=== PATIENT | female | born 1940 | race Asian ===

== ENCOUNTER 2021-10-31 15:30 | Emergency (ER) | payer MEDICARE ==
[2021-11-01] MEDS ORDERED: oxyCODONE /ACETAMINOPHEN 5-325MG TAB PO ONE (01:47)
[2021-11-01] MEDS ORDERED: dexAMETHasone 4 MG/ML VIAL IM ONE (01:47)
[2021-11-01] MEDS ORDERED: CYCLOBENZAPRINE 10 MG TAB PO ONE (01:48)
[2021-11-01 03:49] LABS: Bilirubin,Urine NEG (Negative); Blood,Urine MOD (Negative); Calcium Oxalate Crystals,Urine 3+; Color,Urine Yellow (Yellow); Mucus,Urine 3+ /HPF; Protein,Urine <15 mg/dL mg/dL (Negative); Urobilinogen,Urine < 2.0 mg/dL (<2.0)
[2021-11-01] MEDS ORDERED: levoFLOXacin 500 MG TAB PO ONE (04:28)
--- NOTE | 2021-11-01 04:33 | Emergency Department Report ---
ED Back Pain/Injury HPI - General Chief Complaint: Extremity Problem,Nontraumatic Stated Complaint: LT HIP PAIN Time Seen by Provider: 11/01/21 01:46 Source: patient, EMS Limitations: No Limitations - History of Present Illness Initial Comments: 81-year-old female with a past medical history of hip and back surgery 3 years ago presents to the emergency department for evaluation of worsening left hip and left lower back pain. She states that she has pain usually but over the last few days pain has been significantly worse. She states that pain radiates down her left leg and is worse with movement and palpation. She denies fever, abdominal pain, nausea, vomiting, dysuria, and vaginal discharge. She states that she has had some urinary frequency over the past week. MD Complaint: back pain -: Gradual, week(s) Similar Symptoms Previously: Yes Place: home Radiation: none Severity: severe Quality: aching Consistency: constant Worsens With: walking Associated Symptoms: difficulty walking. denies: confusion, weakness, chest pain, numbness, cough, difficulty urinating, diaphoresis, incontinence, fever/chills, constipation, headaches, abdominal pain, loss of appetite, malaise, nausea/vomiting, rash, seizure, shortness of breath, syncope Treatments Prior to Arrival: prescription analgesics - Related Data Previous Rx's Medication Instructions Recorded Last Taken Type Acetaminophen/Codeine [Tylenol 1 tab PO Q6H PRN #12 tab 11/01/21 Unknown Rx /Codeine # 3 tab] Ciprofloxacin HCl [Ciprofloxacin 250 mg PO BID 5 Days #10 tab 11/01/21 Unknown Rx TAB] Cyclobenzaprine [Flexeril] 10 mg PO TID PRN #30 tab 11/01/21 Unknown Rx methylPREDNISolone [Medrol 4MG 4 mg PO DAILY #1 pack 11/01/21 Unknown Rx DOSEPAK (21 tabs)] Allergies Allergy/AdvReac Type Severity Reaction Status Date / Time Penicillins AdvReac Unknown Verified 10/31/21 15:37 ED Review of Systems ROS: Stated complaint: LT HIP PAIN Other details as noted in HPI Comment: All other systems reviewed and negative Constitutional: denies: chills, malaise, weakness ENT: denies: congestion Respiratory: denies: shortness of breath, SOB with exertion, SOB at rest, stridor, wheezing Cardiovascular: denies: chest pain, palpitations, dyspnea on exertion, orthopnea, edema, syncope, paroxysmal nocturnal dyspnea Gastrointestinal: denies: abdominal pain, nausea, vomiting, diarrhea, hematemesis, melena, hematochezia Genitourinary: frequency. denies: urgency, dysuria, hematuria, discharge Musculoskeletal: back pain Skin: denies: rash, lesions Neurological: denies: headache, weakness ED Past Medical Hx - Medications Home Medications: Home Medications Medication Instructions Recorded Confirmed Last Taken Type Acetaminophen/Codeine [Tylenol 1 tab PO Q6H PRN #12 tab 11/01/21 Unknown Rx /Codeine # 3 tab] Ciprofloxacin HCl [Ciprofloxacin 250 mg PO BID 5 Days #10 tab 11/01/21 Unknown Rx TAB] Cyclobenzaprine [Flexeril] 10 mg PO TID PRN #30 tab 11/01/21 Unknown Rx methylPREDNISolone [Medrol 4MG 4 mg PO DAILY #1 pack 11/01/21 Unknown Rx DOSEPAK (21 tabs)] ED Physical Exam - General Limitations: No Limitations General appearance: alert, in no apparent distress - Head Head exam: Present: atraumatic, normocephalic - Eye Eye exam: Present: normal appearance. Absent: conjunctival injection - Neck Neck exam: Present: normal inspection, full ROM. Absent: tenderness, lymphadenopathy - Respiratory Respiratory exam: Present: normal lung sounds bilaterally. Absent: respiratory distress, wheezes, rales, rhonchi, stridor, chest wall tenderness - Cardiovascular Cardiovascular Exam: Present: regular rate, normal heart sounds - GI/Abdominal GI/Abdominal exam: Present: soft, normal bowel sounds. Absent: distended, tenderness, guarding, rebound, rigid - Extremities Exam Extremities exam: Present: normal inspection, normal capillary refill. Absent: pedal edema, joint swelling - Expanded Lower Extremity Exam Left Hip exam: Present: normal inspection, tenderness. Absent: full ROM, swelling, abrasion, ecchymosis, deformity, erythema Neuro vascular tendon exam: Present: no vascular compromise, motor deficit, sensory deficit. Absent: pulse deficit, abnormal cap refill, extremity cold to touch, pallor Gait: Positive: observed and limited by pain - Back Exam Back exam: Present: normal inspection, tenderness, CVA tenderness (L). Absent: vertebral tenderness - Expanded Back Exam Expanded Back exam: Absent: saddle anesthesia Back exam: Positive Straight Leg Raise: Left - Neurological Exam Neurological exam: Present: alert, oriented X3, CN II-XII intact, normal gait, reflexes normal. Absent: motor sensory deficit - Psychiatric Psychiatric exam: Present: normal affect, normal mood - Skin Skin exam: Present: warm, dry, intact, normal color ED Course Vital Signs 10/31/21 11/01/21 15:35 02:32 Pulse Rate 95 H Respiratory 16 Rate Blood Pressure 180/100 [Left] O2 Sat by Pulse 98 Oximetry ED Medical Decision Making - Medical Decision Making 81-year-old female with a past medical history of hip and back surgery 3 years ago presents to the emergency department for evaluation of worsening left hip and left lower back pain. She states that she has pain usually but over the last few days pain has been significantly worse. She states that pain radiates down her left leg and is worse with movement and palpation. She denies fever, abdominal pain, nausea, vomiting, dysuria, and vaginal discharge. She states that she has had some urinary frequency over the past week Exam consistent with left lower back pain with sciatica. Noted to have CVA tenderness and urine positive for UTI. Patient treated with one-time dose of Levaquin because Cipro was not on formulary at the hospital along with Decadron 8 mg IM, Flexeril, and oxycodone for back pain. Patient had significant improvement in symptoms. Patient discharged home with Cipro 250 mg twice a day for 5 days, Medrol Dosepak, Flexeril 10 mg p.o., and Tylenol with codeine. She is advised to take medications as prescribed and follow-up with her primary care provider if worsening symptoms. She she is advised to return to the emergency department as needed. She verbalizes understanding of and agreement with plan of care. Critical care attestation.: If time is entered above; I have spent that time in minutes in the direct care of this critically ill patient, excluding procedure time. ED Disposition Clinical Impression: UTI (urinary tract infection) Qualifiers: Urinary tract infection type: acute cystitis Hematuria presence: with hematuria Qualified Code(s): N30.01 - Acute cystitis with hematuria Back pain Qualifiers: Back pain location: low back pain Chronicity: acute Back pain laterality: left Sciatica presence: with sciatica Sciatica laterality: sciatica of left side Qualified Code(s): M54.42 - Lumbago with sciatica, left side Disposition: 01 HOME / SELF CARE / HOMELESS Is pt being admited?: No Does the pt Need Aspirin: No Condition: Stable Instructions: Antibiotic Medicine, Adult, [id number], Sciatica, [id number], Urinary Tract Infection, Adult, [id number], Chronic Back Pain, [id number] Additional Instructions: Take medications as prescribed. Follow-up with primary care provider if no improvement or worsening symptoms. Turn to the emergency department as needed. Prescriptions: Ciprofloxacin HCl [Ciprofloxacin TAB] 250 mg PO BID 5 Days #10 tab Cyclobenzaprine [Flexeril] 10 mg PO TID PRN #30 tab PRN Reason: Muscle Spasm methylPREDNISolone [Medrol 4MG DOSEPAK (21 tabs)] 4 mg PO DAILY #1 pack Acetaminophen/Codeine [Tylenol /Codeine # 3 tab] 1 tab PO Q6H PRN #12 tab PRN Reason: Pain , Severe (7-10) Referrals: BAILEY BACK MD [Staff Physician] - 3-5 Days MARISA WARREN MD [Staff Physician] - 3-5 Days Time of Disposition: 04:32
[2021-11-01] MEDS ORDERED: ONDANSETRON 4 MG ODT TAB PO ONE (04:49)
[2021-11-01 09:07] VITALS: BP 151/102
== END 2021-11-01 09:06 | disposition home or self-care (01) ==
LOC: ED 15:30
DX: N39.0 Urinary tract infection, site not specified (principal); M54.50 Low back pain, unspecified; Z88.0 Allergy status to penicillin
CPT/HCPCS: 81001; 87086; 96372; 99283; J1100; J3490; Q0162